=== PATIENT | female | born 1985 | race Caucasian/White ===

== ENCOUNTER → 2016-10-25 | Outpatient (CLI) | payer OTHER ==
--- NOTE | 2016-10-25 12:36 | DIAGNOSTIC IMAGING REPORT ---
PROCEDURE: XR TIBIA AND FIBULA - LEFT INDICATION: PAIN IN L TIBIA TECHNIQUE: AP and lateral views. COMPARISON: None. FINDINGS: Bones, joint spaces and soft tissues are normal. IMPRESSION: 1. Negative left tibia and fibula.
== END ==
LOC: XR SRH 11:13
DX: M79.662 Pain in left lower leg (principal); M89.8X6 Other specified disorders of bone, lower leg